=== PATIENT | male | born 1990 | race American Indian/Alaskan Native ===

== ENCOUNTER 2021-06-23 08:36 | Emergency (ER) | payer SELFPAY ==
[2021-06-23 09:01] VITALS: BP 112/79
--- NOTE | 2021-06-25 14:09 | Electrocardiograph Report ---
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
== END 2021-06-23 16:32 | disposition left against medical advice (07) ==
LOC: ED 08:36
DX: R07.89 Other chest pain (principal); Z53.21 Procedure and treatment not carried out due to patient leaving prior to being seen by health care provider
CPT/HCPCS: 93005